=== PATIENT | female | born 1960 | race Caucasian/White ===

== ENCOUNTER 2021-07-13 19:11 | Emergency (ER) | payer MEDICAID ==
[~2021-07-13] VITALS: Ht 167.6 cm; Wt 72.1 kg
[2021-07-13 19:33] VITALS: BP 141/76
--- NOTE | 2021-07-13 19:34 | NUR ---
biba to [facility] estrella
[2021-07-13] MEDS ORDERED: HYDROcodone/APAP 5/325 MG 1 TAB TAB PO ONE (22:50)
[2021-07-13] MEDS ORDERED: IBUPROFEN 800 MG TAB PO ONE (22:50)
[2021-07-13] MEDS ORDERED: IBUP-2218 PO (22:51)
[2021-07-13 23:59] VITALS: BP 141/76
--- NOTE | 2021-07-13 23:59 | NUR ---
Patient discharged with v/s stable. PT LEFT WITHOUT PAPER WORK Patient alert, oriented and verbalized understanding of instructions. Ambulatory with steady gait. All questions addressed prior to discharge. ID band removed. Patient advised to follow up with PMD. Rx of IBUPROFEN, given. Patient educated on indication of medication including possible reaction and side effects. Opportunity to ask questions provided and answered.
== END 2021-07-13 23:59 | disposition home or self-care (01) ==
LOC: MED 19:11
DX: R07.89 Other chest pain (principal); Z79.899 Other long term (current) drug therapy
CPT/HCPCS: 99283

== ENCOUNTER 2021-07-14 09:12 | Emergency (ER) | payer MEDICAID ==
[~2021-07-14] VITALS: Ht 175.3 cm; Wt 68.0 kg
[~2021-07-14 09:12] MED LIST: IBUP-2218 PO
[2021-07-14 09:21] VITALS: BP 110/80
--- NOTE | 2021-07-14 11:56 | NUR ---
PATIENT LEFT WITHOUT BEING SEEN BY DR. WEBER. NO FURTHER CARE PROVIDED FOR PATIENT.
== END 2021-07-14 14:55 | disposition left against medical advice (07) ==
LOC: MED 09:12
DX: R07.81 Pleurodynia (principal); Z53.21 Procedure and treatment not carried out due to patient leaving prior to being seen by health care provider; W19.XXXA Unspecified fall, initial encounter; Y93.89 Activity, other specified; Y92.89 Other specified places as the place of occurrence of the external cause; Y99.8 Other external cause status